=== PATIENT | male | born 1985 | race Hispanic/Latino ===

== ENCOUNTER 2021-06-19 10:29 | Emergency (ER) | payer SELFPAY ==
[2021-06-19] MEDS ORDERED: Lidocaine 1% (PF) 30 ML VIAL ONE (11:31)
[2021-06-19] MEDS ORDERED: Boostrix 0.5 ML (Tdap) VIAL ONE (12:15)
== END 2021-06-19 12:25 | disposition home or self-care (01) ==
LOC: ERS 10:29
DX: S61.412A Laceration without foreign body of left hand, initial encounter (principal); F17.210 Nicotine dependence, cigarettes, uncomplicated; Z23 Encounter for immunization; W26.9XXA Contact with unspecified sharp object(s), initial encounter
CPT/HCPCS: 12001; 90471; 90715; J2001